=== PATIENT | male | born 1945 | race Caucasian/White ===

== ENCOUNTER 2022-08-26 08:03 | Emergency (ER) | payer MEDICARE, SELFPAY ==
[2022-08-26 08:10] VITALS: BP 185/96; PULSE 94; RESP 18; TEMP 36.6; O2SAT 96; BMI 24.3
[2022-08-26 08:24] VITALS: BP 170/101; PULSE 72; RESP 16; TEMP 36.8; O2SAT 96; BMI 24.3
--- NOTE | 2022-08-26 08:43 | CTR_ITS ---
PROCEDURE INFORMATION: Exam: CT Abdomen And Pelvis With Contrast Exam date and time: 08/26/2022 10:04 AM Age: 77 years old Clinical indication: Abdominal pain; Flank; Left; Prior surgery; Surgery type: Hernia; Additional info: Llq abd/flank pain TECHNIQUE: Imaging protocol: Computed tomography of the abdomen and pelvis with contrast. Radiation optimization: All CT scans at this facility use at least one of these dose optimization techniques: automated exposure control; mA and/or kV adjustment per patient size (includes targeted exams where dose is matched to clinical indication); or iterative reconstruction. Contrast material: OMNI 350; Contrast volume: 100 ml; Contrast route: INTRAVENOUS (IV); COMPARISON: CT chest abd pel w con* 10/06/2015 1:26 PM RADIATION DOSE METRICS: Total DLP (mGy-cm): 449.83 FINDINGS: Lungs: Bilateral dependent atelectasis noted. No consolidation. Liver: Normal. No mass. Gallbladder and bile ducts: Normal. No calcified stones. No ductal dilation. Pancreas: Normal. No ductal dilation. Spleen: Normal. No splenomegaly. Adrenal glands: Normal. No mass. Kidneys and ureters: There is a 0.3 cm obstructing stone in the left distal ureter, resulting in mild hydronephrosis, slight delayed nephrogram and stranding of the perirenal fat. There is an additional nonobstructing stone in the left lower kidney measuring 3 mm. The right kidney is unremarkable. Stomach and bowel: There is diverticulosis without evidence of diverticulitis. No bowel obstruction. Appendix: No evidence of appendicitis. Intraperitoneal space: Unremarkable. No free air. No significant fluid collection. Vasculature: Unremarkable. No abdominal aortic aneurysm. Lymph nodes: Unremarkable. No enlarged lymph nodes. Urinary bladder: Unremarkable as visualized. Reproductive: Enlarged prostate with coarse calcifications noted. Bones/joints: Unremarkable. No acute fracture. Soft tissues: Unremarkable. CT/CT abdomen pelvis w con* [id number] IMPRESSION: Left distal ureter obstructing stone, resulting in mild hydronephrosis.
--- NOTE | 2022-08-26 08:47 | W.ED.ABDPA2 ---
HPI - Abdominal Pain General: Chief Complaint: Abdominal Pain Stated Complaint: abd pain Time Seen by Provider: 08/26/22 08:19 History of Present Illness: This patient is a 77 year old presenting from home with LLQ pain that started yesterday evening and has been constant. He reports that it wraps around to his kidney area at times - but not much. The pain has not moved since it started. He has not had nausea or vomiting. No constipation or diarrhea. he has no appetite and hasn't eaten since the pain started. He denies fever. He is having trouble urinating - dribbling since the pain started. no burning. He has had kidney stones, but says this doesn't really feel like a stone. He has not had UTIs. He has had an inguinal hernia repair on the right - no other surgeries. His only prescription medicine is a medicine for acid reflux. He denies history of HTN, but notes that his BP is high on the monitor here. Physical Exam Const: COMMON NORMALS: no acute distress, patient oriented x3, no limitations and alert GENERAL APPEARANCE: cooperative and comfortable HENMT: HEAD & SCALP: normal to inspection FACE & SINUS: normal facial exam Eye: GENERAL EYE: appearance normal, both eyes and all related structures Neck/C-Spine: COMMON NORMALS: supple, no meningeal signs and no JVD Chest: COMMONS NORMALS: normal inspection of the chest Resp: COMMON NORMALS: normal respiratory effort, No use of accessory muscles and clear to auscultation bilaterally AUSCULTATION: clear to auscultation bilaterally Cardio: COMMON NORMALS: no JVD, regular rate, regular rhythm and No murmurs present (Cardio) RATE: regular rate RHYTHM: regular rhythm GI: COMMON NORMALS: Soft to palpation INSPECTION: Yes normal to inspection AUSCULTATION: Yes normoactive bowel sounds PALPATION: Yes Soft to palpation, Yes Tenderness to palpation present (GI) Details: LLQ, No Guarding due to palpation present (GI) and No Rebound tenderness present Back/Pelvis: COMMON NORMALS: thoracic and lumbar spine normal to inspection Extremity: COMMON NORMALS: normal to inspection Neuro: COMMON NORMALS: patient oriented x3, moves all extremities, no focal motor deficits and no sensory deficits noted SENSORIUM/ORIENTATION: Yes alert MENINGEAL SIGNS: Yes no meningeal signs Psych: COMMON NORMALS: mental status grossly normal, cooperative and normal affect Skin: COMMON NORMALS: no rashes or lesions noted and turgor normal GENERAL SKIN EXAM: no rashes or lesions noted and turgor normal Course Vital Signs: Vital signs: Vital Signs Temperature 98.3 F 08/26/22 08:24 Pulse Rate 67 08/26/22 09:57 Respiratory Rate 14 08/26/22 09:57 Blood Pressure 170/101 08/26/22 09:57 Pulse Oximetry 96 08/26/22 09:57 Oxygen Delivery Me thod 08/26/22 09:57 MDM - Abdominal Pain Medical Decision Making LLQ pain - description of pain most consistent with diverticulitis, however urinary symptoms and history of kidney stones suggest possible kidney stone or UTI, urinary retention. Bladder scan and teixeira if retaining. CT for stone vs diverticulitis. Labs for infection, anemia, renal functions, UTI. Pain control with IV morphine. Pain improved following administration. IV fluid hydration for clinical suggestion of dehydration. CT shows a small - 3 mm - obstructing stone. No diverticulitis. Pain only marginally improved with morphine. Toradol helped more, but continued use is limited by borderline renal function. He also was still not able to urinate more than a dribble and had a post void residual over 500 and a catheter was placed. He was given follow up with Dr. Alegre. No infection noted. He was prescribed meds for pain and nausea as well as flomax. Lab Data 08/26/22 08:50 08/26/22 08:50 Labs/Radiology: Radiology Impressions Abdomen/Pelvis CT 08/26/22 08:43 IMPRESSION: Left distal ureter obstructing stone, resulting in mild hydronephrosis. Laboratory Results WBC 11.9 10^3/uL (4.0-10.0) H 08/26/22 08:50 RBC 3.91 10^6/uL (4.1-5.3) L 08/26/22 08:50 Hgb 12.1 g/dL (11.7-16.6) 08/26/22 08:50 Hct 37.4 % (42.0-52.0) L 08/26/22 08:50 MCV 95.7 fl (80-94) H 08/26/22 08:50 MCH 30.9 pg (28.0-34.0) 08/26/22 08:50 MCHC 32.4 g/dL (30.0-36.0) 08/26/22 08:50 RDW 12.5 % (12.1-15.1) 08/26/22 08:50 Plt Count 266 10^3/cmm (130-400) 08/26/22 08:50 MPV 12.7 fL (7.4-10.4) H 08/26/22 08:50 Neut % (Auto) 81.5 % 08/26/22 08:50 Lymph % (Auto) 12.6 % 08/26/22 08:50 [place] % (Auto) 4.4 % 08/26/22 08:50 Eos % (Auto) 0.8 % 08/26/22 08:50 Baso % (Auto) 0.3 % 08/26/22 08:50 Neut # (Auto) 9.72 10^3/uL (1.8-7.7) H 08/26/22 08:50 Lymph # (Auto) 1.5 10^3/uL (0.8-4.8) 08/26/22 08:50 [place] # (Auto) 0.5 10^3/uL (0.2-0.9) 08/26/22 08:50 Eos # (Auto) 0.1 10^3/uL (0.0-0.8) 08/26/22 08:50 Baso # (Auto) 0.0 10^3/uL (0.0-0.1) 08/26/22 08:50 Nucleated RBC % (auto) 0 % 08/26/22 08:50 Nucleated RBCs # 0.0 /100WBC 08/26/22 08:50 Sodium 137 mmol/L (136-145) 08/26/22 08:50 Potassium 3.9 mmol/L (3.5-5.1) 08/26/22 08:50 Chloride 100 mmol/L (98-107) 08/26/22 08:50 Carbon Dioxide 25 mmol/L (22-29) 08/26/22 08:50 Anion Gap 15.9 (5-19) 08/26/22 08:50 BUN 19 mg/dL (8-23) 08/26/22 08:50 Creatinine 1.6 mg/dL (0.7-1.2) H 08/26/22 08:50 GFR Calculation Not Reportable 08/26/22 08:50 Glucose 104 mg/dL (65-115) 08/26/22 08:50 Calculated Osmolality 287 mOsm/kg (285-295) 08/26/22 08:50 Calcium 9.0 mg/dL (8.5-10.5) 08/26/22 08:50 Total Bilirubin 0.9 mg/dL (0.15-1.2) 08/26/22 08:50 AST 19 U/L (0-40) 08/26/22 08:50 ALT 9 U/L (0-41) 08/26/22 08:50 Alkaline Phosphatase 79 U/L (40-130) 08/26/22 08:50 Total Protein 7.3 g/dL (6.6-8.7) 08/26/22 08:50 Albumin 4.3 g/dL (3.5-5.2) 08/26/22 08:50 Globulin 3.0 g/dL (1.3-4.6) 08/26/22 08:50 Lipase 23 U/L (13-60) 08/26/22 08:50 Urine Color Straw (Yellow) 08/26/22 10:30 Urine Appearance Clear (CLEAR) 08/26/22 10:30 Urine pH 7 (5-7) 08/26/22 10:30 Ur Specific [place] 1.005 (1.005-1.030) 08/26/22 10:30 Urine Protein Neg (Negative) 08/26/22 10:30 Urine Glucose (UA) Norm (Normal) 08/26/22 10:30 Urine Ketones 1+ (Negative) H 08/26/22 10:30 Urine Blood Neg (Negative) 08/26/22 10:30 Urine Nitrate Negative (Negative) 08/26/22 10:30 Urine Bilirubin Neg (Negative) 08/26/22 10:30 Urine Urobilinogen Norm mg/dL (Negative) 08/26/22 10:30 Ur Leukocyte Esterase Negative (Negative) 08/26/22 10:30 Discharge Plan Discharge Patient Disposition: Home Clinical Impression: Renal colic on left side, Acute urinary retention, Kidney stone on left side Condition: Stable Prescriptions: New Endocet 5-325 mg tablet 1 tab PO Q6H PRN (Reason: pain) Qty: 20 0RF tamsulosin 0.4 mg capsule 0.4 mg PO DAILY Qty: 14 0RF ondansetron 4 mg tablet,disintegrating 4 mg PO Q6H PRN (Reason: nausea and vomiting) Qty: 10 0RF Discharge Orders: Discharge ED (Routine); Ordered 08/26/22 Ordered By: Venice Palma Referrals: Oskar Alegre MD [Physician] - Discharge Diet: Advance as tolerated Discharge Activity: Increase activity as tolerated Patient Instructions: Teixeira Catheter Care, Opioid Safety, Pain Management Activity Restrictions/Additional Instructions: The catheter needs to remain in until you see a urologist. Return to the ED if fever, vomiting or the catheter is not draining. Use the pain and nausea medicines as needed. Take the tamsulosin daily as that can help increase urine flow. Return to the ED if you cannot manage the pain at home with the prescribed medication. Coding Level of Care Code ED [employer] for [facility] F[facility] Exam Comprehensive
[2022-08-26 09:02] VITALS: BP 170/101; PULSE 80; RESP 14; O2SAT 97
[2022-08-26 09:03] LABS: Basophils % 0.3 %; Eosinophils # 0.1 10^3/uL (0.0-0.8); Eosinophils % 0.8 %; Hematocrit 37.4 % (42.0-52.0); Hemoglobin 12.1 g/dL (11.7-16.6); Lymphocytes # 1.5 10^3/uL (0.8-4.8); Lymphocytes % 12.6 %; Mean Corpuscular HGB Conc 32.4 g/dL (30.0-36.0); Mean Corpuscular Hemoglobin 30.9 pg (28.0-34.0); Mean Corpuscular Volume 95.7 fl (80-94); Mean Platelet Volume 12.7 fL (7.4-10.4); Monocytes # 0.5 10^3/uL (0.2-0.9); Monocytes % 4.4 %; Neutrophils # 9.72 10^3/uL (1.8-7.7); Neutrophils % 81.5 %; Nucleated Red Blood Cells % 0 %; Platelet Count 266 10^3/cmm (130-400); Red Blood Count 3.91 10^6/uL (4.1-5.3); Red Cell Distribution Width 12.5 % (12.1-15.1); White Blood Count 11.9 10^3/uL (4.0-10.0)
[2022-08-26 09:12] VITALS: RESP 20
[2022-08-26] MEDS: morphine 4 mg/mL SDV 1 mL IVP (09:12)
[2022-08-26] MEDS: ondansetron 2 mg/ML SDV 2 mL 4 MG IVP (09:13)
[2022-08-26 09:25] LABS: Alanine Aminotransferase 9 U/L (0-41); Albumin Level 4.3 g/dL (3.5-5.2); Alkaline Phosphatase 79 U/L (40-130); Aspartate Amino Transferase 19 U/L (0-40); Blood Urea Nitrogen 19 mg/dL (8-23); Carbon Dioxide 25 mmol/L (22-29); Chloride 100 mmol/L (98-107); Glucose 104 mg/dL (65-115); Lipase 23 U/L (13-60); Osmolality Calculated 287 mOsm/kg (285-295); Sodium 137 mmol/L (136-145); Total Bilirubin 0.9 mg/dL (0.15-1.2); Total Protein 7.3 g/dL (6.6-8.7)
[2022-08-26] MEDS: sodium chloride 0.9% 500 ML 999 ML IV ×2 (09:35→10:35)
[2022-08-26 09:37] LABS: Anion Gap 15.9 (5-19); Potassium 3.9 mmol/L (3.5-5.1)
[2022-08-26 09:57] VITALS: BP 170/101; PULSE 67; RESP 14; O2SAT 96
[2022-08-26] MEDS: iohexol 350 mg/mL 500 mL Btl (per mL) IV (10:07)
[2022-08-26 10:49] LABS: Add Urine Microscopic? NO; Charge for UA Resulting for Rev
[2022-08-26 10:51] LABS: Urine Appearance Clear (CLEAR); Urine Color Straw (Yellow)
[2022-08-26 10:52] LABS: Bilirubin Urine Neg (Negative); Blood Urine Neg (Negative); Glucose Urine UA Norm (Normal); Ketones Urine 1+ (Negative); Leukocyte Esterase Urine Negative (Negative); Nitrate Urine Negative (Negative); Protein Urine Neg (Negative); Specific Gravity, Urine 1.005 (1.005-1.030); Urobilinogen Urine Norm (Negative); pH Urine 7 (5-7)
[2022-08-26] MEDS: tamsulosin 0.4 mg Capsule PO (12:12)
[2022-08-26] MEDS: ketorolac 30 mg/mL INJ 15 MG IVP (12:12)
== END 2022-08-26 13:16 | disposition home or self-care (01) ==
PROVIDERS: Emergency Provider Emergency Medicine
DX: N13.2 Hydronephrosis with renal and ureteral calculous obstruction (principal); R33.9 Retention of urine, unspecified
CPT/HCPCS: 51702; 74177; 80053; 81003; 83690; 85025; 96361; 96374; 96375; 99285; J1885; J2270; J2405; J7040; Q9967

== ENCOUNTER 2022-08-28 09:12 | Emergency (ER) | payer MEDICARE, SELFPAY ==
[2022-08-28] VITALS (7 sets, daily range): BP systolic 138–167; BP diastolic 72–91; PULSE 79–101; RESP 16–19; TEMP 37.1; O2SAT 94–100; BMI 24.3
--- NOTE | 2022-08-28 09:46 | ED_ITS ---
HPI - Male Genitourinary General: Chief complaint: Urogenital-Male Stated complaint: kidney stone, n/v Time Seen by Provider: 08/28/22 09:39 Source: patient Mode of arrival: ambulatory History of Present Illness: 77-year-old male who presents to the emergency room with complaints of left flank pain he was seen 2 days ago for neph rolithiasis at the left ureteral stone of 3 mm. He was also having urinary retention and the Bhatt was left in place. He states pain is moderately controlled with the oxycodone he is wanting to have the Bhatt removed at this time. He denies any hematuria. No fever sweats or chills. Onset (ago): day(s) Duration: constant Location: right flank Severity: moderate Quality: sharp Relieving factors: medication Exacerbating factors: none Associated symptoms: Reports nausea and urinary retention; Deny discharge, dysuria, fevers/chills, hematuria, swelling, urinary incont inence, mass or vomiting Review of Systems Const: Denies: fever(s), chills, body aches, change in appetite, fatigue or malaise ENMT: Denies: throat pain, ear or mastoid pain, nasal discharge or nasal congestion Card: Denies: chest pain, edema, dyspnea on exertion or orthopnea Resp: Denies: dyspnea, productive cough or non-productive cough GI: Reports: nausea; Denies: vomiting : Denies: dysuria, urinary incontinence or hematuria Skin/Breast: Denies: rash or pruritus PFSH ED PFSH: Medical History (Updated 08/28/22 @ 11:57 by Acosta Lowe DO) Acute urinary retention Kidney stone on left side Social History (Updated 08/28/22 @ 10:03 by Acosta Lowe DO) Smoking and tobacco status: never smoked Alcohol intake: unknown Physical Exam Const: GENERAL APPEARANCE: cooperative and comfortable ANGELIKA ENTATION/CONSCIOUSNESS: Yes awake HENMT: COMMON NORMALS: normocephalic, atraumatic and hearing grossly normal bilaterally HEAD & SCALP: normocephalic and atraumatic Resp: COMMON NORMALS: normal respiratory effort, No retractions, No use of accessory muscles and clear to auscultation bilaterally AUSCULTATION: clear to auscultation bilaterally Cardio: COMMON NORMALS: regular rate, regular rhythm and No murmurs present (Cardio) RATE: regular rate RHYTHM: regular rhythm GI: COMMON NORMALS: No hepatosplenomegaly present AUSCULTATION: Yes normoactive bowel sounds PALPATION: Yes Tenderness to palpation present (GI) Details: LLQ, No Guarding due to palpation present (GI) and Yes No hepatosplenomegaly present : COMMON NORMALS: Yes no CVA tenderness BLADDER/KIDNEY EXAM: Yes no CVA tenderness Back/Pelvis: COMMON NORMALS: no CVA tenderness Extremity: COMMON NORMALS: normal to inspection, capillary refill normal, no clubbing, cyanosis or edema, no calf tenderness and no pedal edema Skin: COMMON NORMALS: no rashes or lesions noted GENERAL SKIN EXAM: no rashes or lesions noted Course Vital Signs: Vital signs: Vital Signs Temperature 98.7 F 08/28/22 09:31 Pulse Rate 87 08/28/22 10:43 Respiratory Rate 16 08/28/22 10:43 Blood Pressure 160/75 08/28/22 10:43 Pulse Oximetry 96 08/28/22 10:43 Oxygen Delivery Me thod 08/28/22 09:31 MDM - Male Medical Decision Making Patient continues to have pain will increase pain medications. His stone is 3 mm and there is very little past leave Bhatt in place because of urinary retention increase his Percocet. He also is showing signs of cystitis. No culture previous urine culture on this urine was given ceftriaxone in the ER and discharged home with Alvinro to see Dr. Alegre tomorrow. Medical Records I reviewed the patient's medical records. Lab Data I reviewed the patient's lab results. 08/28/22 10:05 08/28/22 10:05 Radiology Impressions KUB X-Ray 08/28/22 09:47 IMPRESSION: 1. No acute abdominal process. 2. 3 mm left abdominal calcification that may represent a renal stone. Laboratory Results WBC 14.2 10^3/uL (4.0-10.0) H 08/28/22 10:05 RBC 4.01 10^6/uL (4.1-5.3) L 08/28/22 10:05 Hgb 12.6 g/dL (11.7-16.6) 08/28/22 10:05 Hct 38.6 % (42.0-52.0) L 08/28/22 10:05 MCV 96.3 fl (80-94) H 08/28/22 10:05 MCH 31.4 pg (28.0-34.0) 08/28/22 10:05 MCHC 32.6 g/dL (30.0-36.0) 08/28/22 10:05 RDW 12.2 % (12.1-15.1) 08/28/22 10:05 Plt Count 309 10^3/cmm (130-400) 08/28/22 10:05 MPV 11.6 fL (7.4-10.4) H 08/28/22 10:05 Neut % (Auto) 80.7 % 08/28/22 10:05 Lymph % (Auto) 10.7 % 08/28/22 10:05 [place] % (Auto) 7.7 % 08/28/22 10:05 Eos % (Auto) 0.2 % 08/28/22 10:05 Baso % (Auto) 0.3 % 08/28/22 10:05 Neut # (Auto) 11.48 10^3/uL (1.8-7.7) H 08/28/22 10:05 Lymph # (Auto) 1.5 10^3/uL (0.8-4.8) 08/28/22 10:05 [place] # (Auto) 1.1 10^3/uL (0.2-0.9) H 08/28/22 10:05 Eos # (Auto) 0.0 10^3/uL (0.0-0.8) 08/28/22 10:05 Baso # (Auto) 0.0 10^3/uL (0.0-0.1) 08/28/22 10:05 Nucleated RBC % (auto) 0 % 08/28/22 10:05 Nucleated RBCs # 0.0 /100WBC 08/28/22 10:05 Sodium 134 mmol/L (136-145) L 08/28/22 10:05 Potassium 3.7 mmol/L (3.5-5.1) 08/28/22 10:05 Chloride 96 mmol/L (98-107) L 08/28/22 10:05 Carbon Dioxide 24 mmol/L (22-29) 08/28/22 10:05 Anion Gap 17.7 (5-19) 08/28/22 10:05 BUN 15 mg/dL (8-23) 08/28/22 10:05 Creatinine 1.5 mg/dL (0.7-1.2) H 08/28/22 10:05 GFR Calculation Not Reportable 08/28/22 10:05 Glucose 114 mg/dL (65-115) 08/28/22 10:05 Calculated Osmolality 280 mOsm/kg (285-295) L 08/28/22 10:05 Calcium 9.0 mg/dL (8.5-10.5) 08/28/22 10:05 Total Bilirubin 1.8 mg/dL (0.15-1.2) H 08/28/22 10:05 AST 15 U/L (0-40) 08/28/22 10:05 ALT 8 U/L (0-41) 08/28/22 10:05 Alkaline Phosphatase 95 U/L (40-130) 08/28/22 10:05 Total Protein 7.9 g/dL (6.6-8.7) 08/28/22 10:05 Albumin 4.5 g/dL (3.5-5.2) 08/28/22 10:05 Globulin 3.4 g/dL (1.3-4.6) 08/28/22 10:05 Urine Color Dark yellow (Yellow) 08/28/22 10:41 Urine Appearance Clear (CLEAR) 08/28/22 10:41 Urine pH 5 (5-7) 08/28/22 10:41 Ur Specific [place] 1.025 (1.005-1.030) 08/28/22 10:41 Urine Protein Trace (Negative) 08/28/22 10:41 Urine Glucose (UA) Norm (Normal) 08/28/22 10:41 Urine Ketones 3+ (Negative) H 08/28/22 10:41 Urine Blood 3+ (Negative) H 08/28/22 10:41 Urine Nitrate Negative (Negative) 08/28/22 10:41 Urine Bilirubin Neg (Negative) 08/28/22 10:41 Urine Urobilinogen 1 mg/dL (Negative) H 08/28/22 10:41 Ur Leukocyte Esterase 1+ (Negative) H 08/28/22 10:41 Urine RBC 0-4 /hpf (0-2) H 08/28/22 10:41 Urine WBC 5-10 /hpf (0-5) H 08/28/22 10:41 Ur Squamous Epith Cells None /hpf (0-5) 08/28/22 10:41 Calcium Oxalate Crystal 0-4 /hpf H 08/28/22 10:41 Amorphous Sediment 1+ /hpf 08/28/22 10:41 Urine Bacteria 2+ /hpf (NONE) H 08/28/22 10:41 Urine Mucus Trace /hpf 08/28/22 10:41 Discharge Plan Discharge Patient Disposition: Home Clinical Impression: Kidney stone on left side, Acute urinary retention, Renal colic on left side Condition: Stable Prescriptions: New ciprofloxacin HCl 500 mg tablet 500 mg PO BID Qty: 14 0RF Percocet 7.5-325 mg tablet 1 - 2 tab PO Q6H PRN (Reason: pain) Qty: 20 0RF No Action pantoprazole 40 mg tablet,delayed release (DR/EC) 40 mg PO DAILY gabapentin 100 mg capsule 100 mg PO BEDTIME oxycodone-acetaminophen [Endocet] 5-325 mg tablet 1 tab PO Q6H PRN (Reason: pain) Qty: 20 0RF tamsulosin 0.4 mg capsule 0.4 mg PO DAILY Qty: 14 0RF ondansetron 4 mg tablet,disintegrating 4 mg PO Q6H PRN (Reason: nausea and vomiting) Qty: 10 0RF Discharge Orders: Discharge ED (Routine); Ordered 08/28/22 Ordered By: Acosta Lowe Patient Instructions: Abdominal Pain (ED), Opioid Safety, Pain Management Activity Restrictions/Additional Instructions: You are seen today for continued discomfort from the kidney stone. The kidney stone is 3 mm anticipated will pass spontaneously. Continue to strain all urine. He did have signs of a bladder infection was given IM antibiotic in the emergency room and started on oral [place] biotic to go home on. Continue the tamsulosin previously prescribed and use the increased dose of Percocet prescribed today's visit. Coding Level of Care Code ED Home Health Travel Ot for [facility] Fwoseas Exam Comprehensive
--- NOTE | 2022-08-28 09:47 | XR_ITS ---
WS: [id number] Exam: XR KUB portable [id number] Date/Time of Exam: 08/28/2022 9:50 AM Reason For Exam: L neprholithiasis No bowel obstruction or free air. No sign of organ enlargement. Bowel gas pattern is unremarkable. 3 mm left abdominal calcification that may represent a renal stone. Nonspecific pelvic calcifications. Postoperative changes in the lower right pelvic region. Mild levoscoliosis of the lumbar spine. Prost ate calcifications. XR/XR KUB portable [id number] IMPRESSION: 1. No acute abdominal process. 2. 3 mm left abdominal calcification that may represent a renal stone.
[2022-08-28 10:13] LABS: Basophils % 0.3 %; Eosinophils % 0.2 %; Hematocrit 38.6 % (42.0-52.0); Hemoglobin 12.6 g/dL (11.7-16.6); Lymphocytes # 1.5 10^3/uL (0.8-4.8); Lymphocytes % 10.7 %; Mean Corpuscular HGB Conc 32.6 g/dL (30.0-36.0); Mean Corpuscular Hemoglobin 31.4 pg (28.0-34.0); Mean Corpuscular Volume 96.3 fl (80-94); Mean Platelet Volume 11.6 fL (7.4-10.4); Monocytes # 1.1 10^3/uL (0.2-0.9); Monocytes % 7.7 %; Neutrophils # 11.48 10^3/uL (1.8-7.7); Neutrophils % 80.7 %; Nucleated Red Blood Cells % 0 %; Platelet Count 309 10^3/cmm (130-400); Red Blood Count 4.01 10^6/uL (4.1-5.3); Red Cell Distribution Width 12.2 % (12.1-15.1); White Blood Count 14.2 10^3/uL (4.0-10.0)
[2022-08-28 10:32] LABS: Alanine Aminotransferase 8 U/L (0-41); Albumin Level 4.5 g/dL (3.5-5.2); Alkaline Phosphatase 95 U/L (40-130); Anion Gap 17.7 (5-19); Aspartate Amino Transferase 15 U/L (0-40); Blood Urea Nitrogen 15 mg/dL (8-23); Carbon Dioxide 24 mmol/L (22-29); Chloride 96 mmol/L (98-107); Creatinine Clr Calc Pharmacy 42.1718; Globulin 3.4 g/dL (1.3-4.6); Glucose 114 mg/dL (65-115); Osmolality Calculated 280 mOsm/kg (285-295); Potassium 3.7 mmol/L (3.5-5.1); Sodium 134 mmol/L (136-145); Total Bilirubin 1.8 mg/dL (0.15-1.2); Total Protein 7.9 g/dL (6.6-8.7)
[2022-08-28] MEDS: morphine 4 mg/mL SDV 1 mL IVP (10:35)
[2022-08-28] MEDS: ondansetron 2 mg/ML SDV 2 mL 4 MG IVP (10:35)
[2022-08-28 11:04] LABS: Specific Gravity, Urine 1.025 (1.005-1.030); Urine Appearance Clear (CLEAR); Urine Color Dark Yellow (Yellow); pH Urine 5 (5-7)
[2022-08-28 11:06] LABS: Add Urine Microscopic? YES; Bilirubin Urine Neg (Negative); Blood Urine 3+ (Negative); Glucose Urine UA Norm (Normal); Ketones Urine 3+ (Negative); Leukocyte Esterase Urine 1+ (Negative); Nitrate Urine Negative (Negative); Protein Urine Trace (Negative); Urobilinogen Urine 1 mg/dL (Negative)
[2022-08-28 11:07] LABS: Add Urine Culture? Yes; Amorphous Sediment Urine 1+ /hpf; Bacteria Urine 2+ /hpf; Calcium Oxalate Crystals Urine 0-4 /hpf; Mucus Urine TRACE /hpf; RBC Urine 0-4 /hpf (0-2)
--- NOTE | 2022-08-28 12:07 | DCPLANNER ---
Addendum entered by Melinda Lovelace 08/31/22 11:37: Patient had a follow up appointment scheduled with urology - patient did attend appointment. Original Note: manager government had message to schedule a follow up appointment for patient with urology. manager government sent patients information to the front office staff at urology. Patients information will be printed and reviewed. Clinic will call patient with appointment information.
[2022-08-28] MEDS: HYDROmorphone 1 mg/mL INJ 1 mL IVP (12:15)
[2022-08-28] MEDS: cefTRIAXone 1,000 MG in sodium chloride 0.9% (plus) 50 ML 100 MG IV (12:15)
== END 2022-08-28 12:53 | disposition home or self-care (01) ==
PROVIDERS: Physician Assistant; Emergency Provider Family Medicine
DX: N20.0 Calculus of kidney (principal); R33.9 Retention of urine, unspecified
CPT/HCPCS: 36415; 74018; 80053; 81001; 85025; 87086; 96365; 96375; 99284; J0696; J1170; J2270; J2405

== ENCOUNTER 2022-08-29 14:37 | Outpatient (CLI) | payer MEDICARE, SELFPAY ==
--- NOTE | 2022-08-29 15:18 | XR_ITS ---
WS: [email or web address] Exam: XR KUB [id number] Date/Time of Exam: 08/29/2022 3:25 PM Reason For Exam: STONE Comparison 08/28/2022. No bowel obstruction or free air. No sign of organ enlargement. Again noted is a 3 mm calcification superimposing the left kidney that may represent a stone. Calcifications in the central pelvis most likely in the prostate gland. Bony structures are intact. Signs of a right pelvic surgery probably hernia repair. XR/XR KUB [id number] IMPRESSION: 1. No acute abdominal process. 2. 3 mm calcification superimposes the lower pole left kidney and may represent a renal stone. No change.
== END 2022-08-29 14:38 | disposition home or self-care (01) ==
LOC: RAD 14:39
PROVIDERS: Visit Provider Urology
DX: N20.2 Calculus of kidney with calculus of ureter (principal); N20.9 Urinary calculus, unspecified; N21.0 Calculus in bladder; R33.8 Other retention of urine
CPT/HCPCS: 52310; 74018; 82365; 88300; 99204

== ENCOUNTER 2023-01-03 11:27 | Outpatient (CLI) | payer MEDICARE, SELFPAY ==
--- NOTE | 2023-01-03 12:10 | XR_ITS ---
WS: [email or web address] Exam: XR KUB [id number] Date/Time of Exam: 01/03/2023 12:10 PM Reason For Exam: stones Comparison 08/29/2022. No bowel obstruction or free air. No sign of organ enlargement. 3 mm calcification superimposes the l ower pole the left kidney and apparently represents a known kidney stone. Prostatic calcifications. P ostoperative changes seen in the lower right pelvic region. Bony elements are intact. XR/XR KUB [id number] IMPRESSION: 1. 3 mm calcification superimposing the lower pole left kidney apparently repre senting a known renal stone. 2. No acute abdominal finding.
== END 2023-01-03 11:28 | disposition home or self-care (01) ==
LOC: RAD 11:33
PROVIDERS: PCP Family Medicine; Visit Provider Urology
DX: N20.0 Calculus of kidney (principal); N21.0 Calculus in bladder; N40.1 Benign prostatic hyperplasia with lower urinary tract symptoms; N13.8 Other obstructive and reflux uropathy
CPT/HCPCS: 51798; 74018; 81003; 99213

== ENCOUNTER → 2023-01-04 09:11 | Outpatient (BNVA) | payer MEDICARE, SELFPAY | PROVIDERS: PCP Family Medicine; Visit Provider Family Medicine | DX: G57.92 Unspecified mononeuropathy of left lower limb (principal) | CPT/HCPCS: 80053; 85025 ==

== ENCOUNTER → 2024-02-06 11:17 | Outpatient (BNVA) | payer MEDICARE, SELFPAY | PROVIDERS: PCP Family Medicine; Visit Provider Family Medicine | DX: R53.83 Other fatigue (principal); E78.5 Hyperlipidemia, unspecified; F32.1 Major depressive disorder, single episode, moderate; K21.9 Gastro-esophageal reflux disease without esophagitis; N20.9 Urinary calculus, unspecified; G57.92 Unspecified mononeuropathy of left lower limb; Z13.220 Encounter for screening for lipoid disorders; Z13.6 Encounter for screening for cardiovascular disorders; E03.9 Hypothyroidism, unspecified | CPT/HCPCS: 80053; 80061; 84439; 84443; 85025 ==

== ENCOUNTER 2024-10-22 10:37 | Outpatient (CLI) | payer MEDICARE, SELFPAY ==
--- NOTE | 2024-10-22 11:15 | US_ITS ---
WS: [id number] ULTRASOUND SOFT TISSUES LEFT neck HISTORY: LEFT neck lesion COMPARISON: None available. TECHNIQUE: 2-D and color Doppler imaging is submitted. There is a large ovoid cystic mass with a few low-level echoes along the LEFT neck. Mass measures 3.2 cm in length by 1.0 cm. There is no increased vascularity. As labeled on the ultrasound imaging this cystic mass is just inferior and lateral to the LEFT thyroid. No additional abnormalities are identi fied. US/US soft tissue head neck [id number] IMPRESSION: Minimally complex cystic mass inferior and lateral to the LEFT thyroid. 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 Consider further evaluation by CT. Ne ck CT with IV contrast would be most beneficial.
== END 2024-10-22 10:38 | disposition home or self-care (01) ==
LOC: RAD 10:38
PROVIDERS: PCP Family Medicine; Visit Provider Family Medicine
DX: R22.1 Localized swelling, mass and lump, neck (principal)
CPT/HCPCS: 76536

== ENCOUNTER → 2024-10-23 10:32 | Outpatient (BNVA) | payer MEDICARE, SELFPAY | PROVIDERS: PCP Family Medicine; Referring Provider Family Medicine; Visit Provider Nurse Practitioner Family | DX: D22.5 Melanocytic nevi of trunk (principal); L57.8 Other skin changes due to chronic exposure to nonionizing radiation; L81.4 Other melanin hyperpigmentation; L82.1 Other seborrheic keratosis; L90.5 Scar conditions and fibrosis of skin; D48.5 Neoplasm of uncertain behavior of skin; L57.0 Actinic keratosis | CPT/HCPCS: 11102; 17000; 99203 ==

== ENCOUNTER 2024-10-30 08:22 | Outpatient (CLI) | payer MEDICARE, SELFPAY ==
--- NOTE | 2024-10-30 09:15 | CT_ITS ---
WS: [id number] CT NECK TECHNIQUE: Contrast-enhanced CT of the neck with coronal and sagittal reformatted images. CLINICAL INFORMATION: mass COMPARISON: None. DLP: 177.[address] scans at [facility] use at least one of these dose optimization techniques: automated exposure control; mA and/or kV adjustment per patient size (includes targeted exams where dose is matched to clinical indication); or iterative reconstruction. FINDINGS: Deep to the palpable marker LEFT neck is an ovoid nodule which appears to represent enlarged lymph node measuring approximately 1.8 x 1.1 x 2.5 cm AP by transverse by craniocaudal. This is anterior to the sternocleidomastoid and just anterior to the carotid. This likely corresponds to the previously described lesion on the ultrasound. Consider ENT evaluation and further evaluation with FNA. This does not appear cystic on this study. Normal submandibular glands. Normal parotid glands. Normal posterior nasopharynx and parapharyngeal fat. Mild mucosal thickening RIGHT maxillary sinus. Mastoid air cells are well aerated. Dental artifact degrades some images. No evidence of supraglottic or glottic mass. Normal subglottic airway. Few tiny thyroid nodules. Moderate spondylitic changes cervical spine. CT/CT neck w con* [id number] IMPRESSION: 1. Deep to the palpable marker LEFT neck is an ovoid low-attenuation lymph nod e likely corresponding to the ultrasound findings. This does not definitely olivier ear cystic on today's study. This is just anterior to the sternocleidomastoid. Consider further evaluation with FNA if persistent clinical concern and/or ENT evaluation. 2. No other acute findings.
[2024-10-30 09:31] LABS: Blood Urea Nitrogen 20 mg/dL (8-23)
[2024-10-30] MEDS: iohexol 350 mg/mL 500 mL Btl (per mL) IV (09:39)
== END 2024-10-30 08:23 | disposition home or self-care (01) ==
LOC: RAD 08:23
PROVIDERS: PCP Family Medicine; Visit Provider Family Medicine
DX: R22.1 Localized swelling, mass and lump, neck (principal); J32.0 Chronic maxillary sinusitis; M47.892 Other spondylosis, cervical region
CPT/HCPCS: 70491; 82565; 84520

== ENCOUNTER → 2024-11-10 08:26 | Outpatient (BNVA) | payer MEDICARE, SELFPAY | PROVIDERS: PCP Family Medicine; Visit Provider Dermatology | DX: D48.5 Neoplasm of uncertain behavior of skin (principal) | CPT/HCPCS: 17000 ==

== ENCOUNTER 2025-07-01 12:34 | Outpatient (CLI) | payer MEDICARE, SELFPAY ==
--- NOTE | 2025-07-01 13:00 | MRR_ITS ---
PROCEDURE INFORMATION: Exam: MR Neck Without and With Contrast Exam date and time: 07/01/2025 1:11 PM Age: 80 years old Clinical indication: Mass, lump, or swelling; Mass on the left side of the neck since August 2024; Additional info: Left neck mass TECHNIQUE: Imaging protocol: Magnetic resonance imaging of the neck without and with contrast. Contrast material: MULLIHANCE; Contrast volume: 17 ml; Contrast route: INTRAVENOUS (IV); COMPARISON: CT neck w con* [id number] 05/31/2025 10:08 AM FINDINGS: Pharynx: The oropharynx is unremarkable. Larynx: Unremarkable. Salivary glands: Unrema the submandibular glands appear normal. The parotid glands are unremarkable. Vasculature: Unremarkable. Lymph nodes: In the left neck, there is a bulky mass lesion occupying a significant portion of the left neck measuring 7.5 x 4.9 x 9.1 cm. This is T1 hypointense, T2 hyperintense. Following contrast agent administration there is diffuse homogeneous enhancement of the lesion. The lesion medially displaces the left internal carotid artery and the internal jugular vein. The left internal jugular vein is not well seen and appears to occlude in the left neck. This was also noted on the CT study of 05/31/2025. There are no additional lesions in the neck soft tissues. Bones/joints: Unremarkable. Soft tissues: Unremarkable. 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 FDG PET is recommended for further characterization.
[2025-07-01] MEDS: gadobenate dimeglumine 20 mL vial IV (13:55)
== END 2025-07-01 12:35 | disposition home or self-care (01) ==
LOC: RAD 12:37
PROVIDERS: PCP Family Medicine; Visit Provider Family Medicine
DX: C76.0 Malignant neoplasm of head, face and neck (principal)
CPT/HCPCS: 70543

== ENCOUNTER 2025-07-10 13:32 | Outpatient (CLI) | payer MEDICARE, SELFPAY ==
--- NOTE | 2025-07-10 14:00 | PETR_ITS ---
PROCEDURE INFORMATION: Exam: PET/CT Skull Base to Mid-thigh Exam date and time: 07/10/2025 2:26 PM Age: 80 years old Clinical indication: Symptoms: Left neck mass; Prior surgery; Surgery date: 6+ months; Surgery type: Left eye; Additional info: Left neck mass, concern for malignancy LABS AND CLINICAL REPORTS: Glucose: 124 mg/dl Treatment strategy for malignancy (PET staging): Initial Staging (PI) TECHNIQUE: Imaging protocol: Following at least four-hour fasting and following the injection of radiopharmaceutical, low dose CT images were obtained. Then, PET images were obtained. Attenuation corrected images were constructed using the CT scan. Fused images of PET and CT were reviewed. The standardized uptake values (SUV) reported below are maximum values within a region of interest, expressed in gm/ml. Exam includes orbital meatal line to mid-thigh. SUV normalization method: BodyWeight Radiopharmaceutical: 10.26 mCi F-18 FDG (Fluorodeoxyglucose), IV. Time of imaging post radiopharmaceutical administration: 46 minutes Injection site: left ac COMPARISON: CT neck w con* [id number] 05/31/2025 10:08 AM FINDINGS: Brain: Visualized brain has normal physiologic uptake. Pharynx: No abnormal uptake. Larynx: No abnormal uptake. Lungs, pleura and trachea: No abnormal uptake. Scattered pulmonary cysts. Scattered punctate calcified granulomas. Heart: Normal physiologic uptake. Scattered mild coronary artery calcifications. Mediastinal space: No abnormal uptake. Liver: No abnormal uptake. Gallbladder and biliary ducts: No abnormal uptake. Pancreas: No abnormal uptake. Spleen: No abnormal uptake. Adrenal glands: No abnormal uptake. Kidneys and ureters: Normal physiologic uptake. 1.2 cm simple cyst in the left kidney. Nonobstructive stone in the left renal collecting system measuring 5 mm. Stomach and bowel: No abnormal uptake. Colonic diverticulosis without evidence of diverticulitis. Reproductive: Prostatomegaly with coarse internal calcifications. The prostate measures up to 5.5 cm in transverse dimension. Vasculature: No abnormal uptake. The vasculature demonstrates diffuse mild atherosclerotic calcification. No aneurysm. Lymph nodes: Hypermetabolic mediastinal and bilateral hilar lymphadenopathy, with lymph nodes measuring up to 1.5 cm in short axis, maximum SUV 5.2. Skeleton: No abnormal uptake in the visualized axial and appendicular skeleton. Soft tissues: Left neck mass obliterating the internal jugular vein and resulting in mass effect upon the sternocleidomastoid muscle demonstrates avid FDG uptake, maximum SUV 18.4. The mass measures approximately 7.7 x 4.6 x 8.4 cm. METRICS: Mediastinal blood pool: Mean SUV of 2.2 Liver uptake: Mean SUV of 2.4 PET/PET skull to thigh INIT [id number] IMPRESSION: 1. FDG avid left neck mass, most consistent with malignancy. 2. Hypermetabolic mediastinal and bilateral hilar lymphadenopathy, suspicious for metastatic lymphadenopathy. 3. Nonobstructive 5 mm stone in the left renal collecting system. 4. Prostatomegaly.
== END 2025-07-10 13:33 | disposition home or self-care (01) ==
LOC: RAD 13:32
PROVIDERS: PCP Family Medicine; Visit Provider Family Medicine
DX: C79.89 Secondary malignant neoplasm of other specified sites (principal)
CPT/HCPCS: 78815; A9552

== ENCOUNTER 2025-07-29 11:06 | Outpatient (CLI) | payer MEDICARE, SELFPAY ==
--- NOTE | 2025-07-29 | US_ITS ---
WS: [id number] ULTRASOUND GUIDED LEFT NECK MASS FNA FOLLOWED BY CORE BIOPSY CLINICAL INFORMATION: Neck mass TECHNIQUE: Ultrasound-guided FNA FINDINGS: Ultrasound of the LEFT neck mass demonstrates a heterogeneous vascular solid mass. Appearance suspicious for neoplasm. The procedure including risks, benefits, and complications were discussed with the patient who agreed to proceed. Timeout was performed. Using sterile technique patient was prepped and draped in usual sterile fashion. After 1% lidocaine, using ultrasound guidance, a 25-gauge needle was advanced into the thyroid nodule. 5 passes were made with active aspiration. Pathology was present for slide preparation. No immediate complications. Lesion is very vascular. No significant bleeding post FNA. Therefore I proceeded with core biopsy sampling. Using an 18-gauge Temno needle approximately 6 core biopsies were obtained. No immediate complications. Patient remained in the ultrasound suite 10 minutes postprocedure with intermittent ultrasound to ensure no hematoma. No hematoma 10 minutes postprocedure. US/US biopsy [id number] IMPRESSION: 1. Uncomplicated ultrasound-guided LEFT neck mass FNA 2. In addition, 6 core samples were obtained with an 18-gauge Temno biopsy dev ice 3. Pathology is pending
--- NOTE | 2025-07-29 11:45 | US_ITS ---
WS: [id number] ULTRASOUND GUIDED LEFT NECK MASS FNA FOLLOWED BY CORE BIOPSY CLINICAL INFORMATION: Neck mass TECHNIQUE: Ultrasound-guided FNA FINDINGS: Ultrasound of the LEFT neck mass demonstrates a heterogeneous vascular solid mass. Appearance suspicious for neoplasm. The procedure including risks, benefits, and complications were discussed with the patient who agreed to proceed. Timeout was performed. Using sterile technique patient was prepped and draped in usual sterile fashion. After 1% lidocaine, using ultrasound guidance, a 25-gauge needle was advanced into the thyroid nodule. 5 passes were made with active aspiration. Pathology was present for slide preparation. No immediate complications. Lesion is very vascular. No significant bleeding post FNA. Therefore I proceeded with core biopsy sampling. Using an 18-gauge Temno needle approximately 6 core biopsies were obtained. No immediate complications. Patient remained in the ultrasound suite 10 minutes postprocedure with intermittent ultrasound to ensure no hematoma. No hematoma 10 minutes postprocedure. US/US guide FNA [id number] IMPRESSION: 1. Uncomplicated ultrasound-guided LEFT neck mass FNA 2. In addition, 6 core samples were obtained with an 18-gauge Temno biopsy dev ice 3. Pathology is pending
[2025-08-03 09:48] LABS: Lymphoma Profile (BBPL) See Report
== END 2025-07-29 11:07 | disposition home or self-care (01) ==
LOC: RAD 11:07
PROVIDERS: PCP Family Medicine; Visit Provider Family Medicine
DX: R22.1 Localized swelling, mass and lump, neck (principal)
CPT/HCPCS: 10005; 76942; 88173; 88184; 88185; 88307; 88342